=== PATIENT | male | born 1980 | race Caucasian/White ===

== ENCOUNTER 2024-07-25 10:04 | Emergency (ER) | payer MEDICAID ==
[2024-07-25] MEDS: LORazepam 1 MG Tab PO ONE (11:20)
[2024-07-25 12:19] VITALS: BP 122/96; PULSE 72
== END 2024-07-25 12:15 | disposition home or self-care (01) ==
LOC: EEVIPCON 10:04 → JD.ED 10:04
DX: F41.9 Anxiety disorder, unspecified (principal); Z86.16 Personal history of COVID-19; F17.210 Nicotine dependence, cigarettes, uncomplicated; Z88.2 Allergy status to sulfonamides; Z88.8 Allergy status to other drugs, medicaments and biological substances
CPT/HCPCS: 99283; A9270